=== PATIENT | female | born 1980 | race African-American/Black ===

== ENCOUNTER 2018-03-11 21:03 | Emergency (ER) | payer OTHER ==
[~2018-03-11] VITALS: Ht 177.8 cm; Wt 65.8 kg
[2018-03-11 21:55] VITALS: BP 136/93
--- NOTE | 2018-03-12 00:02 | NUR ---
CALLED FOR ROOM ASSIGNMENT; NOT IN LOBBY
--- NOTE | 2018-03-12 00:06 | NUR ---
PT LEFT PER ADMITTING.
== END 2018-03-12 00:08 | disposition left against medical advice (07) ==
LOC: ER 21:17
DX: R51 Headache (principal); Z53.21 Procedure and treatment not carried out due to patient leaving prior to being seen by health care provider
CPT/HCPCS: A4606; Z7610